=== PATIENT | male | born 2000 | race Caucasian/White ===

== ENCOUNTER 2020-11-30 16:00 | Emergency (ER) | payer BC ==
[~2020-11-30] VITALS: Ht 177.8 cm; Wt 61.2 kg
[2020-11-30 16:07] VITALS: BP_SYST 151
--- NOTE | 2020-11-30 16:08 | NUR ---
Patient to ER H1 to gown for evaluation. Side rails up. Report given to ZACK JIMENEZ.
--- NOTE | 2020-11-30 16:19 | NUR ---
Pt. came in with c/o hurting right pinky toe 3 weeks ago and still having pain with walking and any kind of movement, no pain when at rest
--- NOTE | 2020-11-30 16:47 | NUR ---
ER at bedside examining patient.
--- NOTE | 2020-11-30 17:24 | NUR ---
RADIOLOGY AT BEDSIDE
[2020-11-30 17:55] VITALS: BP_SYST 133
--- NOTE | 2020-11-30 17:56 | NUR ---
Patient given written and verbal discharge instructions and verbalizes understanding. Dr. Wick discussed with patient the results and treatment provided. Patient in stable condition. ID arm band removed. Patient educated on pain management and to follow up with PMD. Pain Scale 3. Opportunity for questions provided and answered. Medication side effect fact sheet provided.
== END 2020-11-30 17:55 | disposition home or self-care (01) ==
LOC: SED 16:00
DX: S93.601A Unspecified sprain of right foot, initial encounter (principal); F12.90 Cannabis use, unspecified, uncomplicated; W22.8XXA Striking against or struck by other objects, initial encounter; Y93.89 Activity, other specified; Y92.89 Other specified places as the place of occurrence of the external cause; Y99.8 Other external cause status
CPT/HCPCS: 99283